=== PATIENT | male | born 1985 | race Caucasian/White ===

== ENCOUNTER 2023-03-26 22:18 | Outpatient (CLI) | payer MEDICAID, SELFPAY | END 2023-03-26 22:19 | disposition home or self-care (01) | LOC: AMB 03-30 23:50 | PROVIDERS: Visit Provider Emergency Medicine | DX: R45.851 Suicidal ideations (principal) | CPT/HCPCS: A0425; A0429 ==

== ENCOUNTER 2023-03-26 22:41 | Emergency (ER) | payer MEDICAID, SELFPAY ==
[2023-03-26 22:45] VITALS: BP 152/101; PULSE 100; RESP 18; TEMP 36.9; O2SAT 95; BMI 25.1
--- NOTE | 2023-03-26 22:51 | ED.NURSE ---
Addendum entered by Amie Garnica RN 03/26/23 23:26: Pt also stated to EMS that he would find a gang member to fight if he was sent to the [facility]. He does not want to go there. Per PD, pt is currently homeless as well. Original Note: Report received from EMS. Patient was at [facility] on [address]. Police were called due to patient statements. Upon PD and EMS arrival, pt began making suicidal statements such as I'll throw myself in front of a train and I really want someone to shoot me in the face. Pt was in ETOH treatment in [place], but it was not being covered by his insurance, so he left. He hitchhiked his way to [place]. Has been drinking since 1100. Hx of depression and PTSD. Pt has a chronic care nurse through his insurance, [employer]. Pt seeking mental health help at this time. Pt on transport hold from .
[2023-03-26 23:56] LABS: Amphetamine Screen Urine Negative (Negative); Barbiturate Screen Urine Negative (Negative); Benzodiazepines Screen Urine Negative (Negative); Cannabinoid Screen Urine POSITIVE (Negative); Cocaine Screen Urine Negative (Negative); Methadone Screen Urine Negative (Negative); Methamphetamines Screen Urine Negative (Negative); Opiate Screen Urine Negative (Negative); Oxycodone Screen Urine Negative (Negative); Phencyclidine Screen Urine Negative (Negative); Tricyclic Antidepressant Urine Negative (Negative)
[2023-03-26 23:58] LABS: Basophils Percent Auto 0.3 % (0.0-3.0); Eosinophils Percent Auto 1.8 % (0.0-7.0); Hematocrit 38.9 % (37.0-53.0); Hemoglobin* 13.6 gm/dL (13.5-17.5); Immature Granulocytes Pct Auto 0.2 %; Lymphocytes Percent Auto 29.4 % (20-44); Mean Corpuscular HGB Conc 35 gm/dL (32-36); Mean Corpuscular Hemoglobin 33 pg (26-34); Mean Corpuscular Volume 94 fL (80-100); Monocytes Percent Auto 5.8 % (0.0-11.0); Neutrophils Percent Auto 62.5 % (42.0-72.0); Platelet Count* 309 K/uL (140-440); RDW Coefficient of Variation % 11.5 % (11.5-15.5); Red Blood Count 4.14 m/uL (4.30-5.90); White Blood Count* 11.58 K/uL (4.50-11.00)
[2023-03-27 00:01] LABS: Slide Review Reflex No
[2023-03-27 00:13] LABS: Chloride* 108 mmol/L (96-114)
[2023-03-27 00:14] LABS: Albumin* 4.3 g/dL (3.3-5.0)
[2023-03-27 00:15] LABS: Potassium* 3.4 mmol/L (3.6-5.1); Sodium* 141 mmol/L (135-149)
[2023-03-27 00:17] LABS: Alanine Aminotransferase* 49 U/L (4-50); Alkaline Phosphatase* 59 U/L (40-150); Anion Gap 11 mEq/L (7-15); Aspartate Amino Transferase* 39 U/L (12-35); Bilirubin Total* 0.2 mg/dL (0.1-1.5); Blood Urea Nitrogen* 15 mg/dL (5-24); Calcium* 8.8 mg/dL (8.4-10.6); Carbon Dioxide* 22 mmol/L (20-32); Creatinine* 0.5 mg/dL (0.5-1.5); Est. Creatinine Clearance* 217.53; Estimated Glomerular Filt Rate 136 ml/min; Glucose* 141 mg/dL (60-115); Total Protein* 7.1 g/dL (6.0-8.3)
[2023-03-27 00:18] LABS: Acetaminophen* < 10.0 ug/mL (10.0-30.0); Ethanol* 0.17 % (0.01-0.03); Salicylate* < 1.0 mg/dL (1.0-10)
--- NOTE | 2023-03-27 00:49 | ED_ITS ---
HPI - General Adult General Time Seen by Provider: 00:49 <Ayanna Mccarty MD - Last Filed: 03/27/23 01:36> Date Seen: 03/27/23 <Ayanan Mccarty MD - Last Filed: 03/27/23 01:36> Chief complaint: Psychiatric Problem/Disorder <Ayanna Mccarty MD - Last Filed: 03/27/23 01:36> Stated complaint: Alcohol withdrawals <Ayanna Mccarty MD - Last Filed: 03/27/23 01:36> Time Seen by Provider: 03/27/23 00:49 <Ayanna Mccarty MD - Last Filed: 03/27/23 01:36> Source: patient and RN notes reviewed <Ayanna Mccarty MD - Last Filed: 03/27/23 01:36> Mode of arrival: EMS <Ayanna Mccarty MD - Last Filed: 03/27/23 01:36> Limitations: no limitations <Ayanna Mccarty MD - Last Filed: 03/27/23 01:36> History of Present Illness HPI narrative: Jagdish is a very pleasant 37-year-old gentleman who notes longstanding history of depression and anxiety since the age of 8 who is brought to the ER by EMS after expressing desire for suicide to police officers. Jagdish was staying at a local hotel and called 911 stating that he has been struggling with his mental health. He called stating he wanted some help. He told police officers to just ?shoot him in the face? and also that he had plans [place] go [place] the [place]. He comes along willingly and voluntarily according to staff. He has been drinking tonight. Here in the emergency room Jagdish is in room 2. He is willing to talk to me and is able to answer in short sentences. However, he is intoxicated and trying to express complicated ideas is not possible right now. Jagdish is able to tell me where he is at the moment. He denies any drug use. He does desire a mental health assessment. He denies any recent trauma falls. He denies history of schizophrenia or hallucinations. I do not recognize the town that he is from. No history of seizures. Patient does give me permission for a quick exam. I do explain to him that we will allow him to sleep for a few hours. He seems happy with that plan. DEC assessment to take place between 5 and 0600 hours. Patient has food by his bed and has been able to drink fluids. <Ayanna Mccarty MD - Last Filed: 03/27/23 01:36> Related Data Home medications: Home Medications Medication Instructions Recorded Confirmed Prozac 03/26/23 buspirone 30 mg tablet 30 mg PO BID 03/26/23 03/26/23 gabapentin 300 mg capsule 300 mg PO DAILY 03/26/23 03/26/23 quetiapine 200 mg tablet 200 mg PO DAILY 03/26/23 03/26/23 <Ayanna Mccarty MD - Last Filed: 03/27/23 01:36> Allergies/adverse reactions: Allergies Allergy/AdvReac Type Severity Reaction Status Date / Time No Known Drug Allergies Allergy Verified 03/26/23 22:51 <Ayanna Mccarty MD - Last Filed: 03/27/23 01:36> Review of Systems Status of ROS: Reports: 10 or more systems reviewed and unremarkable except as noted in History and below <Ayanna Mccarty MD - Last Filed: 03/27/23 01:36> Const: Denies: fever or chills <Ayanna Mccarty MD - Last Filed: 03/27/23 01:36> Eyes: Denies: change in vision or blurry vision <Ayanna Mccarty MD - Last Filed: 03/27/23 01:36> ENMT: Denies: neck pain or difficulty swallowing <Ayanna Mccarty MD - Last Filed: 03/27/23 01:36> Cardio: Denies: chest pain, swelling of feet/ankles or shortness of breath with exertion <Ayanna Mccarty MD - Last Filed: 03/27/23 01:36> Resp: Denies: shortness of breath or cough <Ayanna Mccarty MD - Last Filed: 03/27/23 01:36> GI: Denies: abdominal pain, nausea, vomiting or difficulty swallowing <Ayanna Mccarty MD - Last Filed: 03/27/23 01:36> Musculo: Denies: back pain or neck pain <Ayanna Mccarty MD - Last Filed: 03/27/23 01:36> Neuro: Denies: headache <Ayanna Mccarty MD - Last Filed: 03/27/23 01:36> Psych: Reports: anxiety, hopelessness and suicidal ideation; Denies: visual hallucinations, auditory hallucinations or homicidal ideation <Ayanna Mccarty MD - Last Filed: 03/27/23 01:36> [facility] Social History: Social History Smoking Status: Never smoker How many standard drinks containing alcohol do you have on a typical day: 10 or more How often do you have six or more drinks on one occasion: Never AUDIT-C Alcohol total score: 4 Non-prescribed substance use: marijuana (any form) service: No <Ayanna Mccarty MD - Last Filed: 03/27/23 01:36> Exam Narrative: Exam Narrative: Patient is awake and obeying commands. He is unable to tell me which town he is in but he knows he is in a hospital. He is able to answer yes or no but the expression of complicated ideas has him is pronouncing words. Head is atraumatic normocephalic. EOM is full. No nystagmus. Pupils are equal round and reactive although somewhat sluggish in movement. Oral cavity is with poor dentition but moist mucous membranes. Face is symmetrical. Neck is supple without thyromegaly or lymphadenopathy. Heart is with a regular rate and rhythm at this time. Lungs are clear bilaterally. Abdomen soft nontender. Lower extremities without edema. He is able to move all extremities. <Ayanna Mccarty MD - Last Filed: 03/27/23 01:36> Const: Vital Signs, click to edit/add: Vital Signs - 24 hr 03/26/23 22:45 03/27/23 08:13 Temperature 98.4 F 97.5 F L Pulse Rate [Right Pulse Oximeter] 100 71 Respiratory Rate 18 16 Blood Pressure [Ri ght Upper Arm] 152/101 H 127/78 Pulse Oximetry 95 97 Oxygen Delivery Me thod Room Air Room Air <Ayanna Mccarty MD - Last Filed: 03/27/23 01:36> Vital Signs, click to edit/add: Vital Signs - 24 hr 03/26/23 22:45 03/27/23 08:13 Temperature 98.4 F 97.5 F L Pulse Rate [Right Pulse Oximeter] 100 71 Respiratory Rate 18 16 Blood Pressure [Ri ght Upper Arm] 152/101 H 127/78 Pulse Oximetry 95 97 Oxygen Delivery Me thod Room Air Room Air <Leif Queen MD - Last Filed: 04/03/23 00:32> Vital Signs, click to edit/add: Vital Signs - 24 hr 03/26/23 22:45 03/27/23 08:13 Temperature 98.4 F 97.5 F L Pulse Rate [Right Pulse Oximeter] 100 71 Respiratory Rate 18 16 Blood Pressure [Ri ght Upper Arm] 152/101 H 127/78 Pulse Oximetry 95 97 Oxygen Delivery Me thod Room Air Room Air <Denis Rodrgíuez MD - Last Filed: 03/27/23 13:34> Documenting provider has reviewed patient's vital signs: yes <Ayanna Mccarty MD - Last Filed: 03/27/23 01:36> Course Course ED Course: Patient presents to the ED at this time voluntarily and had called 911 for help with his mental health. Told police that he was at the end of his rope. He has been voluntary at this time. However, if he changes mind I would not feel comfortable allowing him to go based on his statements and current intoxication. At this time patient agrees to rest here in the ED and we will obtain mental health assessment in the morning. Labs had been ordered prior to my arrival. He is protecting his airway and we do have him in exam 2 where he can be monitored. <Ayanna Mccarty MD - Last Filed: 03/27/23 01:36> Vital Signs Vital signs: Initial Vital Signs Temperature 98.4 F 03/26/23 22:45 Temperature Source Temporal Artery Scan 03/26/23 22:45 Pulse Rate 100 03/26/23 22:45 Pulse Rhythm Regular 03/26/23 22:45 Respiratory Rate 18 03/26/23 22:45 Blood Pressure 152/101 H 03/26/23 22:45 Blood Pressure Mean 118 H 03/26/23 22:45 Blood Pressure Position Semi-Fowlers 03/26/23 22:45 Pulse Oximetry 95 03/26/23 22:45 Oxygen Delivery Method Room Air 03/26/23 22:45 Vital Signs Temperature 98.4 F 03/26/23 22:45 Pulse Rate 100 03/26/23 22:45 Respiratory Rate 18 03/26/23 22:45 Blood Pressure 152/101 H 03/26/23 22:45 Pulse Oximetry 95 03/26/23 22:45 Oxygen Delivery Method Room Air 03/26/23 22:45 Temperature 97.5 F L 03/27/23 08:13 Pulse Rate 71 03/27/23 08:13 Respiratory Rate 16 03/27/23 08:13 Blood Pressure 127/78 03/27/23 08:13 Pulse Oximetry 97 03/27/23 08:13 Oxygen Delivery Method Room Air 03/27/23 08:13 <Ayanna Mccarty MD - Last Filed: 03/27/23 01:36> Initial Vital Signs Temperature 98.4 F 03/26/23 22:45 Temperature Source Temporal Artery Scan 03/26/23 22:45 Pulse Rate 100 03/26/23 22:45 Pulse Rhythm Regular 03/26/23 22:45 Respiratory Rate 18 03/26/23 22:45 Blood Pressure 152/101 H 03/26/23 22:45 Blood Pressure Mean 118 H 03/26/23 22:45 Blood Pressure Position Semi-Fowlers 03/26/23 22:45 Pulse Oximetry 95 03/26/23 22:45 Oxygen Delivery Method Room Air 03/26/23 22:45 Vital Signs Temperature 98.4 F 03/26/23 22:45 Pulse Rate 100 03/26/23 22:45 Respiratory Rate 18 03/26/23 22:45 Blood Pressure 152/101 H 03/26/23 22:45 Pulse Oximetry 95 03/26/23 22:45 Oxygen Delivery Method Room Air 03/26/23 22:45 Temperature 97.5 F L 03/27/23 08:13 Pulse Rate 71 03/27/23 08:13 Respiratory Rate 16 03/27/23 08:13 Blood Pressure 127/78 03/27/23 08:13 Pulse Oximetry 97 03/27/23 08:13 Oxygen Delivery Method Room Air 03/27/23 08:13 <Leif Queen MD - Last Filed: 04/03/23 00:32> Initial Vital Signs Temperature 98.4 F 03/26/23 22:45 Temperature Source Temporal Artery Scan 03/26/23 22:45 Pulse Rate 100 03/26/23 22:45 Pulse Rhythm Regular 03/26/23 22:45 Respiratory Rate 18 03/26/23 22:45 Blood Pressure 152/101 H 03/26/23 22:45 Blood Pressure Mean 118 H 03/26/23 22:45 Blood Pressure Position Semi-Fowlers 03/26/23 22:45 Pulse Oximetry 95 03/26/23 22:45 Oxygen Delivery Method Room Air 03/26/23 22:45 Vital Signs Temperature 98.4 F 03/26/23 22:45 Pulse Rate 100 03/26/23 22:45 Respiratory Rate 18 03/26/23 22:45 Blood Pressure 152/101 H 03/26/23 22:45 Pulse Oximetry 95 03/26/23 22:45 Oxygen Delivery Method Room Air 03/26/23 22:45 Temperature 97.5 F L 03/27/23 08:13 Pulse Rate 71 03/27/23 08:13 Respiratory Rate 16 03/27/23 08:13 Blood Pressure 127/78 03/27/23 08:13 Pulse Oximetry 97 03/27/23 08:13 Oxygen Delivery Method Room Air 03/27/23 08:13 <Denis Rodríguez MD - Last Filed: 03/27/23 13:34> Medical Decision Making MDM Narrative Medical decision making narrative: 1. Suicidal ideation-at this time patient is intoxicated and expressed suicidal ideation to 9 1 [employer] equipment operator as well as police officers. At this time he is voluntary and will be seen talking to our mental health assessors at approximately 0500 or 3-1/2 hours from now. Alcohol level at this time 0.17. U tox positive for marijuana. 2. Alcohol intoxication-alcohol 0.17. 3. Disposition-at this time patient will be signed out to my partner Dr. Queen. <Ayanna Mccarty MD - Last Filed: 03/27/23 01:36> 1. Suicidal ideation-at this time patient is intoxicated and expressed suicidal ideation to 9 1 [employer] equipment operator as well as police officers. At this time he is voluntary and will be seen talking to our mental health assessors at approximately 0500 or 3-1/2 hours from now. Alcohol level at this time 0.17. U tox positive for marijuana. 2. Alcohol intoxication-alcohol 0.17. 3. Disposition-at this time patient will be signed out to my partner Dr. Ries. Queen -- I inherited this patient at change of shift. He has been sleeping. Was noted to be quite intoxicated at 0.17 and initial assessment by Dr. Mccarty. Has been interviewed now by [facility] who are quite familiar with Mr. Ledesma. Apparently he has had numerous assessments and regularly leaves AMA high either from the emergency department or the psychiatric facility. Also apparently does drink rather heavily. Suspicion is that level of toxication partly related to fatigue and THC ingestion. Apparently looks for admission because has nowhere else to go; essentially homeless. Mother as contact to whom he does speak occasionally. Di lisaiculsammie interview for DEC. Pleasant and agreeable if anticipating admission until pushed a little otherwise. Recommendations are for establishment of [facility] social work assistance. Sober living facility. Possibly a crisis bed. Day treatment might be another option. He has however left treatment as well on a number of occasions. At this point I am anticipating him to continue to sleep for the next few hours here in this emergency department with consultation and further recommendations hopefully by social Work. Will be signed out at change of shift. Addendum 1:33 p.m. the patient has been stable throughout his ER stay. He has met with [facility] they felt that he is stable to go weeks proceed home. Social Service evaluated him here, and tried to get him into a [facility] to see if it would help him with housing and initial needs, these are all full today. We do have access to [facility] which can help him with emergency housing and other needs. In that was recommended by social Service I think that is very reasonable. He can return to the ED as needed, repeat recommended continue his home medications, recommend follow-up as per [facility]. <Leif Queen MD - Last Filed: 04/03/23 00:32> 1. Suicidal ideation-at this time patient is intoxicated and expressed suicidal ideation to 9 1 [employer] equipment operator as well as police officers. At this time he is voluntary and will be seen talking to our mental health assessors at approximately 0500 or 3-1/2 hours from now. Alcohol level at this time 0.17. U tox positive for marijuana. 2. Alcohol intoxication-alcohol 0.17. 3. Disposition-at this time patient will be signed out to my partner Dr. Ries. Queen -- I inherited this patient at change of shift. He has been sleeping. Was noted to be quite intoxicated at 0.17 and initial assessment by Dr. Mccarty. Has been interviewed now by [facility] who are quite familiar with Mr. Ledesma. Apparently he has had numerous assessments and regularly leaves AMA high either from the emergency department or the psychiatric facility. Also apparently does drink rather heavily. Suspicion is that level of toxication partly related to fatigue and THC ingestion. Apparently looks for admission because has nowhere else to go; essentially homeless. Mother as contact to whom he does speak occasionally. Difficult interview for DEC. Pleasant and agreeable if anticipating admission until pushed a little otherwise. Recommendations are for establishment of [facility] social work assistance. Sober living facility. Possibly a crisis bed. Day treatment might be another option. He has however left treatment as well on a number of occasions. At this point I am anticipating him continue to sleep for the next few hours here in this emergency department with consultation and further recommendations hopefully by social Work Addendum 1:33 p.m. the patient has been stable throughout his ER stay. [facility] they felt that he is stable to go weeks proceed home. Social Service evaluated him here, and tried to get him into a crisis center to see if it would help him with housing and initial needs, these are all full today. We do have access to [facility] which can help him with emergency housing and other needs. In that was recommended by social Service I think that is very reasonable. He can return to the ED as needed, repeat recommended continue his home medications, recommend follow-up as per [facility]. <Denis Rodríguez MD - Last Filed: 03/27/23 13:34> Medical Records Medical records narrative: No records available <Ayanna Mccarty MD - Last Filed: 03/27/23 01:36> Lab Data Lab results reviewed: Yes I reviewed the patient's lab results <Ayanna Mccarty MD - Last Filed: 03/27/23 01:36> Labs: Lab Results 03/26/23 03/26/23 Range/Units 23:00 23:50 WBC 11.58 H (4.50-11.00) K/uL RBC 4.14 L (4.30-5.90) m/uL Hgb 13.6 (13.5-17.5) gm/dL Hct 38.9 (37.0-53.0) % MCV 94 (80-100) fL MCH 33 (26-34) pg MCHC 35 (32-36) gm/dL RDW Coeff of Sarahi 11.5 (11.5-15.5) % Plt Count 309 (140-440) K/uL Neut % (Auto) 62.5 (42.0-72.0) % Lymph % (Auto) 29.4 (20-44) % Dundy % (Auto) 5.8 (0.0-11.0) % Eos % (Auto) 1.8 (0.0-7.0) % Baso % (Auto) 0.3 (0.0-3.0) % Neut # (Auto) 7.20 H (1.7-7.0) K/uL Lymph # (Auto) 3.40 H (0.90-2.90) K/uL Dundy # (Auto) 0.70 (0.00-0.90) K/UL Eos # (Auto) 0.20 (0.00-0.50) K/uL Baso # (Auto) 0.00 (0.00-0.30) K/uL Abs Immat Gran (auto) 0.00 (0.00-0.30) K/uL Imm/Tot Granulo (auto) 0.2 % Sodium 141 (135-149) mmol/L Potassium 3.4 L (3.6-5.1) mmol/L Chloride 108 (96-114) mmol/L Carbon Dioxide 22 (20-32) mmol/L Anion Gap 11 (7-15) mEq/L BUN 15 (5-24) mg/dL Creatinine 0.5 (0.5-1.5) mg/dL Estimated Creat Clear 217.53 Estimated GFR 136 ml/min Glucose 141 H (60-115) mg/dL Calcium 8.8 (8.4-10.6) mg/dL Total Bilirubin 0.2 (0.1-1.5) mg/dL AST 39 H (12-35) U/L ALT 49 (4-50) U/L Alkaline Phosphatase 59 (40-150) U/L Total Protein 7.1 (6.0-8.3) g/dL Albumin 4.3 (3.3-5.0) g/dL Salicylates < 1.0 L (1.0-10) mg/dL Urine Opiates Screen Negative (Negative) Ur Oxycodone Screen Negative (Negative) Urine Methadone Screen Negative (Negative) Ur Propoxyphene Screen Negative (Negative) Acetaminophen < 10.0 L (10.0-30.0) ug/mL Ur Barbiturates Screen Negative (Negative) U Tricyclic Antidepress Negative (Negative) Ur Phencyclidine Scrn Negative (Negative) Ur Amphetamines Screen Negative (Negative) U Methamphetamines Scrn Negative (Negative) U Benzodiazepines Scrn Negative (Negative) Urine Cocaine Screen Negative (Negative) U Marijuana (THC) Screen POSITIVE A (Negative) Ur Drug Screen Comment See Note Ethyl Alcohol 0.17 H (0.01-0.03) % <Ayanna Mccarty MD - Last Filed: 03/27/23 01:36> Lab Results 03/26/23 03/26/23 Range/Units 23:00 23:50 WBC 11.58 H (4.50-11.00) K/uL RBC 4.14 L (4.30-5.90) m/uL Hgb 13.6 (13.5-17.5) gm/dL Hct 38.9 (37.0-53.0) % MCV 94 (80-100) fL MCH 33 (26-34) pg MCHC 35 (32-36) gm/dL RDW Coeff of Sarahi 11.5 (11.5-15.5) % Plt Count 309 (140-440) K/uL Neut % (Auto) 62.5 (42.0-72.0) % Lymph % (Auto) 29.4 (20-44) % Dundy % (Auto) 5.8 (0.0-11.0) % Eos % (Auto) 1.8 (0.0-7.0) % Baso % (Auto) 0.3 (0.0-3.0) % Neut # (Auto) 7.20 H (1.7-7.0) K/uL Lymph # (Auto) 3.40 H (0.90-2.90) K/uL Dundy # (Auto) 0.70 (0.00-0.90) K/UL Eos # (Auto) 0.20 (0.00-0.50) K/uL Baso # (Auto) 0.00 (0.00-0.30) K/uL Abs Immat Gran (auto) 0.00 (0.00-0.30) K/uL Imm/Tot Granulo (auto) 0.2 % Sodium 141 (135-149) mmol/L Potassium 3.4 L (3.6-5.1) mmol/L Chloride 108 (96-114) mmol/L Carbon Dioxide 22 (20-32) mmol/L Anion Gap 11 (7-15) mEq/L BUN 15 (5-24) mg/dL Creatinine 0.5 (0.5-1.5) mg/dL Estimated Creat Clear 217.53 Estimated GFR 136 ml/min Glucose 141 H (60-115) mg/dL Calcium 8.8 (8.4-10.6) mg/dL Total Bilirubin 0.2 (0.1-1.5) mg/dL AST 39 H (12-35) U/L ALT 49 (4-50) U/L Alkaline Phosphatase 59 (40-150) U/L Total Protein 7.1 (6.0-8.3) g/dL Albumin 4.3 (3.3-5.0) g/dL Salicylates < 1.0 L (1.0-10) mg/dL Urine Opiates Screen Negative (Negative) Ur Oxycodone Screen Negative (Negative) Urine Methadone Screen Negative (Negative) Ur Propoxyphene Screen Negative (Negative) Acetaminophen < 10.0 L (10.0-30.0) ug/mL Ur Barbiturates Screen Negative (Negative) U Tricyclic Antidepress Negative (Negative) Ur Phencyclidine Scrn Negative (Negative) Ur Amphetamines Screen Negative (Negative) U Methamphetamines Scrn Negative (Negative) U Benzodiazepines Scrn Negative (Negative) Urine Cocaine Screen Negative (Negative) U Marijuana (THC) Screen POSITIVE A (Negative) Ur Drug Screen Comment See Note Ethyl Alcohol 0.17 H (0.01-0.03) % <Leif Queen MD - Last Filed: 04/03/23 00:32> Lab Results 03/26/23 03/26/23 Range/Units 23:00 23:50 WBC 11.58 H (4.50-11.00) K/uL RBC 4.14 L (4.30-5.90) m/uL Hgb 13.6 (13.5-17.5) gm/dL Hct 38.9 (37.0-53.0) % MCV 94 (80-100) fL MCH 33 (26-34) pg MCHC 35 (32-36) gm/dL RDW Coeff of Sarahi 11.5 (11.5-15.5) % Plt Count 309 (140-440) K/uL Neut % (Auto) 62.5 (42.0-72.0) % Lymph % (Auto) 29.4 (20-44) % Dundy % (Auto) 5.8 (0.0-11.0) % Eos % (Auto) 1.8 (0.0-7.0) % Baso % (Auto) 0.3 (0.0-3.0) % Neut # (Auto) 7.20 H (1.7-7.0) K/uL Lymph # (Auto) 3.40 H (0.90-2.90) K/uL Dundy # (Auto) 0.70 (0.00-0.90) K/UL Eos # (Auto) 0.20 (0.00-0.50) K/uL Baso # (Auto) 0.00 (0.00-0.30) K/uL Abs Immat Gran (auto) 0.00 (0.00-0.30) K/uL Imm/Tot Granulo (auto) 0.2 % Sodium 141 (135-149) mmol/L Potassium 3.4 L (3.6-5.1) mmol/L Chloride 108 (96-114) mmol/L Carbon Dioxide 22 (20-32) mmol/L Anion Gap 11 (7-15) mEq/L BUN 15 (5-24) mg/dL Creatinine 0.5 (0.5-1.5) mg/dL Estimated Creat Clear 217.53 Estimated GFR 136 ml/min Glucose 141 H (60-115) mg/dL Calcium 8.8 (8.4-10.6) mg/dL Total Bilirubin 0.2 (0.1-1.5) mg/dL AST 39 H (12-35) U/L ALT 49 (4-50) U/L Alkaline Phosphatase 59 (40-150) U/L Total Protein 7.1 (6.0-8.3) g/dL Albumin 4.3 (3.3-5.0) g/dL Salicylates < 1.0 L (1.0-10) mg/dL Urine Opiates Screen Negative (Negative) Ur Oxycodone Screen Negative (Negative) Urine Methadone Screen Negative (Negative) Ur Propoxyphene Screen Negative (Negative) Acetaminophen < 10.0 L (10.0-30.0) ug/mL Ur Barbiturates Screen Negative (Negative) U Tricyclic Antidepress Negative (Negative) Ur Phencyclidine Scrn Negative (Negative) Ur Amphetamines Screen Negative (Negative) U Methamphetamines Scrn Negative (Negative) U Benzodiazepines Scrn Negative (Negative) Urine Cocaine Screen Negative (Negative) U Marijuana (THC) Screen POSITIVE A (Negative) Ur Drug Screen Comment See Note Ethyl Alcohol 0.17 H (0.01-0.03) % <Denis Rodríguez MD - Last Filed: 03/27/23 13:34> Discharge Plan Discharge Clinical Impression: Suicidal ideation Alcohol intoxication Qualifiers: Complication of substance-induced condition: uncomplicated Qualified Code(s): F10.920 - Alcohol use, unspecified with intoxication, uncomplicated <Ayanna Mccarty MD - Last Filed: 03/27/23 01:36> Patient Disposition: Home w/ Parent or Adult <Ayanna Mccarty MD - Last Filed: 03/27/23 01:36> Condition: Improved <Ayanna Mccarty MD - Last Filed: 03/27/23 01:36> Additional Instructions: Social Service has made arrangements for you to get some emergency assessment by [facility]. Would recommend you follow through with that. Return to the ED as needed. Would avoid alcohol. Continue home medications. <Ayanna Mccarty MD - Last Filed: 03/27/23 01:36> Activity Level: Light activity <Ayanna Mccarty MD - Last Filed: 03/27/23 01:36> Light activity <Leif Queen MD - Last Filed: 04/03/23 00:32> Light activity <Denis Rodríguez MD - Last Filed: 03/27/23 13:34> Discharge Diet: Regular <Ayanna Mccarty MD - Last Filed: 03/27/23 01:36> Regular <Leif Queen MD - Last Filed: 04/03/23 00:32> Regular <Denis Rodríguez MD - Last Filed: 03/27/23 13:34> Prescriptions: No Action Prozac buspirone 30 mg tablet 30 mg PO BID gabapentin 300 mg capsule 300 mg PO DAILY quetiapine 200 mg tablet 200 mg PO DAILY <Ayanna Mccarty MD - Last Filed: 03/27/23 01:36> Follow Up/Referrals: Provider,Not a Local [Primary Care Provider] - <Ayanna Mccarty MD - Last Filed: 03/27/23 01:36> Stand Alone Forms: [facility] Info Instructions <Ayanna Mccarty MD - Last Filed: 03/27/23 01:36>
--- NOTE | 2023-03-27 01:00 | ED.NURSE ---
Pt currently resting in room. Food and water have been given to pt.
--- NOTE | 2023-03-27 01:39 | ED.NURSE ---
pt report given to oncadair RN
--- NOTE | 2023-03-27 01:41 | ED.NURSE ---
Assumed care of pt @ 0140. Report received from previous nurse. 1:[address] for patient safety. Pt sleeping at this time. Will continue to monitor and assess.
--- NOTE | 2023-03-27 04:01 | ED.NURSE ---
ROC[facility]O called the ER to speak with this manual writer. ROCÍO school business manager Sybil stated pt has a history of getting drunk, calling PD on himself, being brought to ER, then signing out AMA once he marga up. Sybil expresses concern that patient will refuse inpatient treatment again after utilizing ROC[facility]O resources and time. Informed this manual writer that most of patient's history is through [facility] system in which this cycle can be seen. ROC[facility]O wished to proceed with assessment at this time. Pt is currently voluntary, but holdable. Will await recommendations from ROC[facility]O.
--- NOTE | 2023-03-27 04:51 | ED.NURSE ---
DEC assessment completed @ approximately 0425.
--- NOTE | 2023-03-27 05:32 | ED.NURSE ---
patient is sleeping in the bed and left a message for social service to talk with patient in am.
[2023-03-27 08:13] VITALS: BP 127/78; PULSE 71; RESP 16; TEMP 36.4; O2SAT 97
--- NOTE | 2023-03-27 08:26 | ED.NURSE ---
pt woke up easily to voice. states feeling ok. up to br independent. breakfast ordered.
--- NOTE | 2023-03-27 10:41 | ED.NURSE ---
social work program coordinator here seeing pt. pt requesting lunch now.
--- NOTE | 2023-03-27 11:23 | PC.SOCIAL ---
Addendum entered by LEV Hoang 03/27/23 12:57: Received call back from [facility] confirming they have no openings at this time. Called [facility], [facility], [facility] and [facility]. None of these facilities have any availability. Called [facility] to inform them pt will be sent to them for housing options at his request. Awaiting call back from [facility]. tangled yarn worker to follow up as needed. Addendum entered by LEV Hoang 03/27/23 11:36: Located a second [facility] program serving [facility], [facility] [phone]. Left message requesting call back about availability in that facility. tangled yarn worker to follow up as needed. Original Note: Discharge planning: Met with pt who states he just left a substance treatment program in [place] and wants to be placed in another one. Pt is not interested in being given information on programs he can contact and wants to go someplace directly from the hospital. After being told there is typically a waiting list for substance treatment programs, pt requested placement in a Crisis Home for his mental health. He states he has been to these before and that they have helped him get into a substance treatment program from the Crisis Home. At pt's request, called [facility] and was directed to [facility]. Called [phone] and spoke with Lesa mohan, who stated they would know by noon if they have an available bed and would call back to complete intake process with pt if they have availability. Met again with pt who was agreeable with this plan. If there is no availability at [facility], pt is requesting to talk with the [facility] about jail placement options. tangled yarn worker to follow up as needed.
--- NOTE | 2023-03-27 13:12 | ED.NURSE ---
Pt resting in room, watching TV. Calm and cooperative at this time.
--- NOTE | 2023-03-27 13:39 | PC.SOCIAL ---
Discharge plan: Met with pt who is aware there are no Crisis Home beds available for [facility]. Pt is requesting transportation to the [facility] walk[facility]in resource center for evaluation for housing services. He states he feels safe with this plan and wants to start a new life here and avoid going to the [facility]. Provided pt with information on the [facility] if he feels he needs this resource and is located in [facility]. This is not an option for placement from [facility] which is located in [facility]. PT is appreciative of information provided and capable of following up with the [facility].
== END 2023-03-27 14:02 | disposition home or self-care (01) ==
PROVIDERS: Emergency Medicine; Emergency Provider Family Medicine
DX: R45.851 Suicidal ideations (principal); F10.129 Alcohol abuse with intoxication, unspecified
CPT/HCPCS: 36415; 80053; 80143; 80179; 80306; 82077; 85025; 99284